=== PATIENT | male | born 1980 ===

== ENCOUNTER 2020-01-25 18:38 | Outpatient (REF) | payer MEDICAID, SELFPAY ==
[2020-01-27 14:06] LABS: Chlamydia Result Negative (Negative); GC Result Negative (Negative)
== END 2020-01-25 18:58 ==
LOC: NCHCN 18:38
PROVIDERS: PCP Nurse Practitioner Family; Visit Provider Nurse Practitioner Family
DX: N50.812 Left testicular pain (principal)
CPT/HCPCS: 87491; 87591

== ENCOUNTER 2022-02-03 14:27 | Outpatient (REF) | payer BC, MEDICAID, SELFPAY ==
[2022-02-03 15:24] LABS: Calculated LDL 196 mg/dL (<100); Cholesterol 271 mg/dL (<200); HDL Cholesterol 53 mg/dL (40-60); Triglyceride 114 mg/dL (<150)
[2022-02-03 23:13] LABS: PSA, Screening 0.8 ng/mL (<=2.5)
== END 2022-02-03 14:28 | disposition home or self-care (01) ==
LOC: NCHCN 14:27
PROVIDERS: PCP Nurse Practitioner Family; Visit Provider Internal Medicine
DX: R39.9 Unspecified symptoms and signs involving the genitourinary system (principal); Z13.6 Encounter for screening for cardiovascular disorders; Z12.5 Encounter for screening for malignant neoplasm of prostate
CPT/HCPCS: 80061; 84153

== ENCOUNTER 2023-03-06 14:53 | Outpatient (REF) | payer BC, MEDICAID, SELFPAY ==
[2023-03-06 21:41] LABS: Calculated LDL 202 mg/dL (<100); Cholesterol 288 mg/dL (<200); HDL Cholesterol 54 mg/dL (40-60); Triglyceride 161 mg/dL (<150)
== END 2023-03-06 14:54 | disposition home or self-care (01) ==
LOC: NCHCN 14:53
PROVIDERS: PCP Nurse Practitioner Family; Visit Provider Internal Medicine
DX: E78.5 Hyperlipidemia, unspecified (principal)
CPT/HCPCS: 80061